=== PATIENT | female | born 1970 | race African-American/Black ===

== ENCOUNTER 2019-09-20 17:52 | Emergency (ER) | payer BC, OTHER ==
[~2019-09-20] VITALS: Ht 165.1 cm; Wt 65.8 kg
[~2019-09-20 17:52] MED LIST: NAPROSYN500 MG PO
[2019-09-20] MEDS ORDERED: TOPROL XL50 MG PO (18:01)
[2019-09-20] MEDS ORDERED: MOBIC7.5 MG PO (19:24)
[2019-09-20 19:43] VITALS: BP 134/76
== END 2019-09-20 19:43 | disposition home or self-care (01) ==
LOC: ER 17:52
DX: R07.89 Other chest pain (principal); I10 Essential (primary) hypertension